=== PATIENT | male | born 1930 | race Caucasian/White ===

== ENCOUNTER 2016-03-31 16:22 | Inpatient (IN) | payer OTHER, MEDICAID ==
[~2016-03-31] VITALS: Ht 172.7 cm; Wt 86.2 kg
[~2016-03-31 16:22] MED LIST: ATOR80TA PO; BUME1TAB4 PO; CLOP75TA2 PO; CYAN10009 PO; DOCU-170 PO; FAMO20TA8 PO; FINA5TAB11 PO; GABA-532 PO; LIDOCAINE 2.5% TOP; METO50TA3 PO; OXYC15TA2 PO; TAMS0.4C34 PO; WARF2TAB6 PO
[2016-03-31] MEDS ORDERED: PIPERACILLIN /TAZOBACTAM 3.375 G in IV D5W 50 ML IV ONE (16:30)
[2016-03-31] MEDS ORDERED: VANCOMYCIN 1 GM in IV D5W 250 ML IV ONE (16:30)
[2016-03-31] MEDS ORDERED: IV NS 0.9% 500 ML BAG IV ONE (16:30)
[2016-03-31] MEDS ORDERED: IV NS 0.9% 500 ML IV ONE ×2 (16:46→19:30)
[2016-03-31] MEDS ORDERED: IV SET PRIMARY 1 EA INFUS.SET MC ONE (16:46)
[2016-03-31] MEDS ORDERED: IV SET PRIMARY PUMP SET 1 EA INFUS.SET MC ONE ×2 (16:46→18:31)
[2016-03-31] MEDS ORDERED: WARFARIN SODIUM 2 MG TABLET PO SCH (17:00)
[2016-03-31 17:07] LABS: BASOPHILS # (AUTO) 0.1 /CMM (0.0-0.2); BASOPHILS % (AUTO) 0.6 % (0.0-2.0); DIFF TOTAL % 100 %; EOSINOPHILS # (AUTO) 0.1 /CMM (0.0-0.7); EOSINOPHILS % (AUTO) 0.9 % (0.0-6.0); HEMATOCRIT 39 % (39-51); HEMOGLOBIN 12.6 g/dL (13.5-17.5); LYMPHOCYTES # (AUTO) 1.8 /CMM (0.8-4.8); LYMPHOCYTES % (AUTO) 19.1 % (20.0-44.0); MEAN CORPUSCULAR HEMOGLOBIN 26 PG (26.0-33.0); MEAN CORPUSCULAR HGB CONC 33 g/dl (31.0-36.0); MEAN CORPUSCULAR VOLUME 78 fL (80-96); MONOCYTES # (AUTO) 0.7 /CMM (0.1-1.30); MONOCYTES % (AUTO) 7.6 % (2.0-12.0); NEUTROPHILS # (AUTO) 6.8 /CMM (1.8-8.9); NEUTROPHILS % (AUTO) 71.8 % (43.0-81.0); PLATELET COUNT (AUTO) 241 /CMM (150-450); RED BLOOD CELL COUNT(AUTO) 4.94 MIL/uL (4.5-6.0); WHITE BLOOD COUNT (AUTO) 9.5 K/uL (4.3-11.0)
[2016-03-31 17:18] LABS: LACTIC ACID 1.4 mmol/L (0.4-2.0)
[2016-03-31 17:59] LABS: INR 3.56 (0.87-1.13); PROTHROMBIN TIME 38.9 SECS (9.5-12.7)
[2016-03-31 18:06] LABS: KETONES,URINE NEGATIVE (NEGATIVE); LEUKOCYTE ESTERASE ,URINE NEGATIVE (NEGATIVE)
[2016-03-31 18:11] LABS: ADD UA MICROSCOPIC YES; ALBUMIN 3.1 g/dL (3.4-5.0); BILIRUBIN,DIRECT 0.1 mg/dL (0.0-0.2); BILIRUBIN,TOTAL 0.5 mg/dL (0.2-1.0); CALCIUM, SERUM 8.8 mg/dL (8.5-10.1); CREATININE 2.9 mg/dL (0.6-1.3); INDIRECT BILIRUBIN 0.4 mg/dL (0.0-1.1); TOTAL PROTEIN, SERUM 7.5 g/dL (6.4-8.2)
[2016-03-31 18:17] LABS: POTASSIUM 2.7 mmol/L (3.5-5.1)
[2016-03-31 18:22] LABS: ADD URINE CULTURE NO; RBC,URINE NONE SEEN /HPF (0-2); WBC,URINE 0-2 /HPF (0-3)
[2016-03-31] MEDS ORDERED: HYDROCODONE/APAP 5/325MG 1 EACH TABLET ONE (18:26)
[2016-03-31] MEDS ORDERED: HYDROCODONE/APAP 5/325MG 1 EACH TABLET PO PRN (18:30)
[2016-03-31] MEDS ORDERED: POTASSIUM CL. PREMIX PERIPHER. 100 ML ONE (18:31)
[2016-03-31] MEDS ORDERED: IV NS 0.9% 250 ML IV ONE (18:32)
[2016-03-31] MEDS: POTASSIUM CL. PREMIX PERIPHER. 50 ML IV SCH ×2 (18:45→21:04)
[2016-03-31 18:47] LABS: TROPONIN I 0.075 ng/mL (0.00-0.056)
[2016-03-31] MEDS ORDERED: ASPIRIN 81 MG TAB.CHEW ONE (18:58)
[2016-03-31] MEDS ORDERED: ASPIRIN 81 MG TAB.CHEW PO ONE (19:00)
[2016-03-31] MEDS ORDERED: ACETAMINOPHEN 325 MG TABLET PO PRN (19:30)
[2016-03-31] MEDS ORDERED: MINERAL OIL/PETROL OINT 396 GM JAR TP PRN ×2 (19:30)
[2016-03-31] MEDS ORDERED: ONDANSETRON HCL/PF 4 MG/2 ML VIAL IVP PRN (19:30)
[2016-03-31 20:00] VITALS: BP 122/68
[2016-03-31] MEDS ORDERED: POTASSIUM CHLORIDE 20 MEQ TAB.PRT.SR PO ONE ×2 (20:00→20:54)
[2016-03-31] MEDS ORDERED: oxyCODONE IR immediate release 5 MG CAPSULE ONE (20:27)
[2016-03-31] MEDS ORDERED: IV NS 0.9% 2,000 ML ONE (20:28)
[2016-03-31] MEDS: oxyCODONE IR immediate release 5 MG CAPSULE PO PRN (20:32)
[2016-03-31] MEDS: IV NS 0.9% 1,000 ML IV PRN (20:34)
[2016-03-31] MEDS ORDERED: ATORVASTATIN 40 MG TABLET ONE (20:55)
[2016-03-31] MEDS ORDERED: ATORVASTATIN 40 MG TABLET PO SCH (22:00)
[2016-04-01] MEDS ORDERED: CEPHALEXIN MONOHYDRATE 500 MG CAPSULE PO ONE (00:39)
[2016-04-01] MEDS ORDERED: CEPHALEXIN MONOHYDRATE 250 MG CAPSULE PO ONE (01:28)
[2016-04-01] MEDS: CEPHALEXIN MONOHYDRATE 250 MG CAPSULE PO SCH ×5 (01:35→23:28)
[2016-04-01] MEDS ORDERED: oxyCODONE IR immediate release 5 MG CAPSULE ONE ×2 (05:12→22:28)
[2016-04-01] MEDS: IV NS 0.9% 1,000 ML IV PRN ×2 (05:15→23:29)
[2016-04-01] MEDS: oxyCODONE IR immediate release 5 MG CAPSULE PO PRN ×2 (05:16→12:17)
[2016-04-01 05:57] LABS: BASOPHILS # (AUTO) 0.1 /CMM (0.0-0.2); BASOPHILS % (AUTO) 0.9 % (0.0-2.0); DIFF TOTAL % 100 %; EOSINOPHILS # (AUTO) 0.1 /CMM (0.0-0.7); EOSINOPHILS % (AUTO) 1.5 % (0.0-6.0); HEMATOCRIT 40 % (39-51); HEMOGLOBIN 12.9 g/dL (13.5-17.5); LYMPHOCYTES % (AUTO) 11.3 % (20.0-44.0); MEAN CORPUSCULAR HEMOGLOBIN 26 PG (26.0-33.0); MEAN CORPUSCULAR HGB CONC 33 g/dl (31.0-36.0); MEAN CORPUSCULAR VOLUME 79 fL (80-96); MONOCYTES # (AUTO) 0.6 /CMM (0.1-1.30); MONOCYTES % (AUTO) 6.9 % (2.0-12.0); NEUTROPHILS % (AUTO) 79.4 % (43.0-81.0); PLATELET COUNT (AUTO) 230 /CMM (150-450); WHITE BLOOD COUNT (AUTO) 8.8 K/uL (4.3-11.0)
[2016-04-01 06:23] LABS: BILIRUBIN,TOTAL 0.4 mg/dL (0.2-1.0); CREATININE 2.5 mg/dL (0.6-1.3); PHOSPHORUS 3.9 mg/dL (2.5-4.9); POTASSIUM 3.8 mmol/L (3.5-5.1); TOTAL PROTEIN, SERUM 7.1 g/dL (6.4-8.2)
[2016-04-01 06:27] LABS: THYROID STIMULATING HORMONE 1.603 uIU/mL (0.358-3.74)
[2016-04-01 08:00] VITALS: BP 107/64
[2016-04-01] MEDS: FINASTERIDE (5 MG) 5 MG TABLET PO SCH (08:14)
[2016-04-01] MEDS: FAMOTIDINE (20 MG) 20 MG TABLET PO SCH ×2 (08:14→17:05)
[2016-04-01] MEDS: DOCUSATE SODIUM 100 MG CAPSULE PO SCH (08:14)
[2016-04-01] MEDS: TAMSULOSIN 0.4 MG CAP.SR.24H PO SCH (08:15)
[2016-04-01] MEDS: METOPROLOL TARTRATE 50 MG TABLET PO SCH ×2 (08:15→17:05)
[2016-04-01] MEDS: GABAPENTIN 100 MG CAPSULE PO SCH ×3 (08:15→17:05)
[2016-04-01] MEDS ORDERED: CLOPIDOGREL BISULFATE 75 MG TABLET PO SCH (09:00)
[2016-04-01 09:41] VITALS: BP 107/64
[2016-04-01] MEDS ORDERED: IV NS 0.9% 1,000 ML IV PRN (10:26)
[2016-04-01 15:44] VITALS: BP 118/68
[2016-04-01 16:00] VITALS: BP 118/68
[2016-04-01] MEDS ORDERED: WARFARIN SODIUM 2 MG TABLET PO SCH (17:00)
[2016-04-01] MEDS: oxyCODONE/APAP (5/325 MG) 1 UDTAB TABLET PO PRN (17:37)
[2016-04-01 20:00] VITALS: BP 127/70
[2016-04-01] MEDS ORDERED: oxyCODONE IR immediate release 5 MG CAPSULE PO PRN (20:30)
[2016-04-02] MEDS: CEPHALEXIN MONOHYDRATE 250 MG CAPSULE PO SCH ×4 (06:12→23:29)
[2016-04-02 07:16] LABS: TROPONIN I 0.036 ng/mL (0.00-0.056)
[2016-04-02 07:20] LABS: ALBUMIN 3.3 g/dL (3.4-5.0); BILIRUBIN,TOTAL 0.7 mg/dL (0.2-1.0); CALCIUM, SERUM 9.1 mg/dL (8.5-10.1); CREATININE 2.2 mg/dL (0.6-1.3); PHOSPHORUS 3.1 mg/dL (2.5-4.9); POTASSIUM 3.6 mmol/L (3.5-5.1); TOTAL PROTEIN, SERUM 7.4 g/dL (6.4-8.2)
[2016-04-02 07:23] LABS: INR 2.03 (0.87-1.13); PROTHROMBIN TIME 22.1 SECS (9.5-12.7)
[2016-04-02 08:00] VITALS: BP 112/70
[2016-04-02 08:37] LABS: BASOPHILS # (AUTO) 0.1 /CMM (0.0-0.2); BASOPHILS % (AUTO) 0.6 % (0.0-2.0); DIFF TOTAL % 100 %; EOSINOPHILS # (AUTO) 0.1 /CMM (0.0-0.7); EOSINOPHILS % (AUTO) 1.7 % (0.0-6.0); HEMATOCRIT 39 % (39-51); HEMOGLOBIN 12.5 g/dL (13.5-17.5); LYMPHOCYTES # (AUTO) 1.4 /CMM (0.8-4.8); LYMPHOCYTES % (AUTO) 16.7 % (20.0-44.0); MEAN CORPUSCULAR HEMOGLOBIN 25 PG (26.0-33.0); MEAN CORPUSCULAR HGB CONC 32 g/dl (31.0-36.0); MEAN CORPUSCULAR VOLUME 79 fL (80-96); MONOCYTES # (AUTO) 0.6 /CMM (0.1-1.30); NEUTROPHILS # (AUTO) 6.2 /CMM (1.8-8.9); PLATELET COUNT (AUTO) 233 /CMM (150-450); RED BLOOD CELL COUNT(AUTO) 4.93 MIL/uL (4.5-6.0); WHITE BLOOD COUNT (AUTO) 8.3 K/uL (4.3-11.0)
[2016-04-02] MEDS: DOCUSATE SODIUM 100 MG CAPSULE PO SCH (08:46)
[2016-04-02] MEDS: FAMOTIDINE (20 MG) 20 MG TABLET PO SCH ×2 (08:46→16:22)
[2016-04-02] MEDS: oxyCODONE/APAP (5/325 MG) 1 UDTAB TABLET PO PRN (08:46)
[2016-04-02] MEDS: TAMSULOSIN 0.4 MG CAP.SR.24H PO SCH (08:46)
[2016-04-02] MEDS: FINASTERIDE (5 MG) 5 MG TABLET PO SCH (08:46)
[2016-04-02] MEDS: GABAPENTIN 100 MG CAPSULE PO SCH ×3 (08:46→16:22)
[2016-04-02] MEDS: METOPROLOL TARTRATE 50 MG TABLET PO SCH ×2 (08:47→16:23)
[2016-04-02] MEDS: HYDROMORPHONE 1 MG/1 ML DISP.SYRIN IV PRN ×4 (10:20→23:38)
[2016-04-02 12:16] LABS: IRON, SERUM 62 ug/dl (50-175); PERCENT SATURATION 15 % (14-33); TOTAL IRON BINDING CAPACITY 407 ug/dl (250-450)
[2016-04-02] MEDS ORDERED: Z GUARD REMEDY 2 OZ OINT TP PRN (15:00)
[2016-04-02] MEDS: SILVER SULFADIAZINE CREAM 25 GM TUBE TP SCH (15:00)
[2016-04-02] MEDS: Z GUARD REMEDY 2 OZ OINT TP SCH (15:00)
[2016-04-02 16:00] VITALS: BP 125/67
[2016-04-02] MEDS: IV NS 0.9% 1,000 ML IV PRN (18:26)
[2016-04-02 20:00] VITALS: BP 108/69
[2016-04-02 20:46] VITALS: BP 108/69
[2016-04-03 00:03] VITALS: BP 112/66
[2016-04-03] MEDS: HYDROMORPHONE 1 MG/1 ML DISP.SYRIN IV PRN (04:39)
[2016-04-03 04:42] VITALS: BP 130/77
[2016-04-03] MEDS: IV NS 0.9% 1,000 ML IV PRN (04:42)
[2016-04-03] MEDS: CEPHALEXIN MONOHYDRATE 250 MG CAPSULE PO SCH ×2 (05:12→12:21)
[2016-04-03 07:11] LABS: ALBUMIN 3.1 g/dL (3.4-5.0); BILIRUBIN,TOTAL 0.7 mg/dL (0.2-1.0); CALCIUM, SERUM 9.3 mg/dL (8.5-10.1); CREATININE 1.7 mg/dL (0.6-1.3); PHOSPHORUS 2.8 mg/dL (2.5-4.9); POTASSIUM 4.1 mmol/L (3.5-5.1); TOTAL PROTEIN, SERUM 7.1 g/dL (6.4-8.2)
[2016-04-03 07:36] LABS: INR 1.39 (0.87-1.13); PROTHROMBIN TIME 15.1 SECS (9.5-12.7)
[2016-04-03 08:00] VITALS: BP 121/67
[2016-04-03 08:05] VITALS: BP 121/67
[2016-04-03] MEDS: DOCUSATE SODIUM 100 MG CAPSULE PO SCH (08:06)
[2016-04-03] MEDS: FINASTERIDE (5 MG) 5 MG TABLET PO SCH (08:07)
[2016-04-03] MEDS: METOPROLOL TARTRATE 50 MG TABLET PO SCH (08:07)
[2016-04-03] MEDS: FAMOTIDINE (20 MG) 20 MG TABLET PO SCH (08:07)
[2016-04-03] MEDS: TAMSULOSIN 0.4 MG CAP.SR.24H PO SCH (08:07)
[2016-04-03] MEDS: GABAPENTIN 100 MG CAPSULE PO SCH ×2 (08:07→12:21)
[2016-04-03] MEDS: SILVER SULFADIAZINE CREAM 25 GM TUBE TP SCH (08:08)
[2016-04-03] MEDS: Z GUARD REMEDY 2 OZ OINT TP SCH (08:08)
[2016-04-03] MEDS ORDERED: CEPH-570 PO (09:13)
[2016-04-03 11:02] LABS: *SPE ALBUMIN 3.3 g/dL (2.9-4.4)
[2016-04-03] MEDS: oxyCODONE/APAP (5/325 MG) 1 UDTAB TABLET PO PRN (15:58)
[2016-04-03 16:52] VITALS: BP 136/76
[2016-04-03 19:30] VITALS: BP 130/87
== END 2016-04-03 14:00 | disposition home or self-care (01) | DRG 280 ==
LOC: ER 16:23 → MEDSG2 17:57
PROVIDERS: ADMIT Internal Medicine; ATTEND Internal Medicine
DX: I83.028 Varicose veins of left lower extremity with ulcer other part of lower leg (principal); G93.40 Encephalopathy, unspecified; I21.4 Non-ST elevation (NSTEMI) myocardial infarction; N17.9 Acute kidney failure, unspecified; I50.42 Chronic combined systolic (congestive) and diastolic (congestive) heart failure; D68.59 Other primary thrombophilia; I13.0 Hypertensive heart and chronic kidney disease with heart failure and stage 1 through stage 4 chronic kidney disease, or unspecified chronic kidney disease; E87.3 Alkalosis; L97.819 Non-pressure chronic ulcer of other part of right lower leg with unspecified severity; L97.829 Non-pressure chronic ulcer of other part of left lower leg with unspecified severity; L03.115 Cellulitis of right lower limb; L03.116 Cellulitis of left lower limb; E11.22 Type 2 diabetes mellitus with diabetic chronic kidney disease; E78.5 Hyperlipidemia, unspecified; E86.0 Dehydration; E87.6 Hypokalemia; F32.9 Major depressive disorder, single episode, unspecified; G89.4 Chronic pain syndrome; I25.10 Atherosclerotic heart disease of native coronary artery without angina pectoris; I48.91 Unspecified atrial fibrillation; I73.9 Peripheral vascular disease, unspecified; N18.9 Chronic kidney disease, unspecified; N40.0 Benign prostatic hyperplasia without lower urinary tract symptoms; Z95.1 Presence of aortocoronary bypass graft; Z86.73 Personal history of transient ischemic attack (TIA), and cerebral infarction without residual deficits; Z87.891 Personal history of nicotine dependence; T50.2X5A Adverse effect of carbonic-anhydrase inhibitors, benzothiadiazides and other diuretics, initial encounter; I25.2 Old myocardial infarction; K21.9 Gastro-esophageal reflux disease without esophagitis; I83.018 Varicose veins of right lower extremity with ulcer other part of lower leg; L98.9 Disorder of the skin and subcutaneous tissue, unspecified; J44.9 Chronic obstructive pulmonary disease, unspecified; S91.105A Unspecified open wound of left lesser toe(s) without damage to nail, initial encounter; S91.102A Unspecified open wound of left great toe without damage to nail, initial encounter; X58.XXXA Exposure to other specified factors, initial encounter; Y93.9 Activity, unspecified; Y92.009 Unspecified place in unspecified non-institutional (private) residence as the place of occurrence of the external cause; Y99.9 Unspecified external cause status
CPT/HCPCS: 36415; 71010-TC; 76770-TC; 76856-TC; 80048-TC; 80053-TC; 80061-TC; 80076-TC; 81000-TC; 82728-TC; 83540-TC; 83605-TC; 83735-TC; 84100-TC; 84155; 84165; 84443-TC; 84484-TC; 85025-TC; 85730-TC; 87040-TC; 87081-TC; 93307-TC; 93925-TC; A4606; A6253; A6402; A6403; J1170; J2405; J2543; J3370; J3480; J7030; J7040; J7050; J7060; Z7610